=== PATIENT | female | born 1940 | race Caucasian/White ===

== ENCOUNTER 2023-06-02 05:48 | Observation (INO) ==
[~2023-06-02 05:48] MED LIST: BUPIVACAINE **LIPOSOME/PF 13.3 MG/ML (266MG/ 20ML) VIAL (RESTRICTED) INFIL ONE; Buffered Lidocaine 1% SYRIN 1 ml INTRADERM ONE; Lactated Ringers 1000 ml BAG 1,000 ML IV SCH
[2023-06-02] MEDS ORDERED: ceFAZolin 2 GM in NS PREMIX 2 GM/100 ML BAG IVPB ONE (06:15)
[2023-06-02] MEDS ORDERED: Tranexamic Acid 1 GM/100ML BAG 2,000 MG/200 ML BAG IV ONE (06:15)
[2023-06-02 06:45] LABS: Rapid COVID-19 Molecular Undetected (Undetected)
[2023-06-02] MEDS ORDERED: Dexamethasone IV 4 MG/ML VIAL 1 ml VIAL ONE (07:10)
[2023-06-02] MEDS ORDERED: Lidocaine 2% PF 5 ML VIAL ONE (07:10)
[2023-06-02] MEDS ORDERED: Ondansetron 4 mg VIAL 2 MG/ML 2 ml VIAL ONE ×3 (07:10→12:20)
[2023-06-02] MEDS ORDERED: Norepinephrine IV 1 MG/ML 4 ML VIAL ONE (07:10)
[2023-06-02] MEDS ORDERED: Bupivacaine 0.25% SDV PF 10 ML VIAL INJ ONE (07:10)
[2023-06-02] MEDS ORDERED: Dexmedetomidine 200 mcg/2 ml 2 ml VIAL (200 mcg) ONE (07:10)
[2023-06-02] MEDS ORDERED: Bupivacaine 0.5% SDV PF 30ML VIAL ONE (07:10)
[2023-06-02] MEDS ORDERED: Phenylephrine 40 mcg/mL 10mL (400mcg) SYRINGE ONE (07:11)
[2023-06-02] MEDS ORDERED: Midazolam 2 mg/2 ml VIAL 1 mg/ml 2 ml VIAL (2 mg) ONE (07:11)
[2023-06-02] MEDS ORDERED: fentaNYL 100 mcg/2 ml 50 MCG/ML VIAL ONE (07:11)
[2023-06-02] MEDS ORDERED: Bupivacaine 0.25% SDV 30 ML ONE (07:13)
[2023-06-02] MEDS ORDERED: Propofol 10 MG/ML 20 ML BTL ONE (07:13)
[2023-06-02] MEDS ORDERED: Lidocaine 1% VIAL 10 MG/ML 30 ML VIAL ONE (07:39)
[2023-06-02] MEDS ORDERED: methylPREDNISolone ACETATE 40 mg/ml 1 ml VIAL **not IV ONE (07:39)
[2023-06-02] MEDS ORDERED: BUPIVACAINE **LIPOSOME/PF 13.3 MG/ML (266MG/ 20ML) VIAL (RESTRICTED) INFIL ONE (09:00)
[2023-06-02] MEDS ORDERED: Naloxone 0.4 mg VIAL 0.4 mg/ml 1 ml VIAL IV PRN (09:58)
[2023-06-02] MEDS ORDERED: Ondansetron 4 mg VIAL 2 MG/ML 2 ml VIAL IV PRN ×2 (09:58→10:57)
[2023-06-02] MEDS ORDERED: fentaNYL 100 mcg/2 ml 50 MCG/ML VIAL IV PRN (09:58)
[2023-06-02] MEDS ORDERED: Magnesium Hydroxide LIQ 30 ML UDC PO PRN (10:57)
[2023-06-02] MEDS ORDERED: Lactulose 30 ml UDC PO PRN (10:57)
[2023-06-02] MEDS ORDERED: Ondansetron ODT 4 mg TAB 4 MG TAB PO PRN (10:57)
[2023-06-02] MEDS ORDERED: Morphine 2 MG/ML SYRINGE IV PRN (10:57)
[2023-06-02] MEDS ORDERED: hydrALAZINE 20 mg/ml 1 ML Vial IV ONE (12:03)
[2023-06-02] MEDS ORDERED: hydrALAZINE 20 mg/ml 1 ML Vial IV IV SLOW PU PRN (12:03)
[2023-06-02] MEDS ORDERED: Acetaminophen IV 1 GM/100ML 1,000 MG/100 ML BAG IV ONE ×2 (12:04)
[2023-06-02] MEDS ORDERED: HYDROmorphone 1 MG/1 ML SYRINGE ONE (12:19)
[2023-06-02] MEDS: HYDROmorphone 1 MG/1 ML SYRINGE IV PRN ×2 (12:21→12:30)
[2023-06-02] MEDS: Lactated Ringers 1000 ml BAG 1,000 ML IV SCH ×2 (12:48→23:08)
[2023-06-02] MEDS ORDERED: Prochlorperazine 5 mg/ml 2 ml VIAL (10 mg) IV PRN (15:52)
[2023-06-02] MEDS ORDERED: Scopolamine 1 mg/72hr PATCH TRANSDERM SCH (16:00)
[2023-06-02] MEDS: ceFAZolin 1 GM ADVAN 1 GM in NS 0.9% 50 ML 50 ML IVPB SCH ×2 (16:07→23:52)
[2023-06-02] MEDS: Magnesium Hydroxide LIQ 30 ML UDC PO SCH (22:32)
[2023-06-03 07:05] LABS: Hematocrit 31.1 % (35-45); Hemoglobin 10.8 g/dL (11.5-14.3); Mean Platelet Volume 8.3 fL (7.5-11.2); Platelet Count 271 10^3/uL (150-450)
[2023-06-03 07:16] LABS: Calcium 9.1 mg/dL (8.6-10.3); Creatinine, Serum 0.57 mg/dL (0.51-0.95); eGFR CKD-EPI 91.2 (>60)
[2023-06-03] MEDS: ceFAZolin 1 GM ADVAN 1 GM in NS 0.9% 50 ML 50 ML IVPB SCH (07:55)
[2023-06-03] MEDS: Vitamin THERAPEUTIC TAB PO SCH (08:18)
[2023-06-03] MEDS: Magnesium Hydroxide LIQ 30 ML UDC PO SCH ×2 (08:19→21:24)
[2023-06-04 06:23] LABS: Hematocrit 32.4 % (35-45); Mean Platelet Volume 8.4 fL (7.5-11.2); Platelet Count 297 10^3/uL (150-450)
[2023-06-04] MEDS: Vitamin THERAPEUTIC TAB PO SCH (08:35)
[2023-06-04] MEDS: Magnesium Hydroxide LIQ 30 ML UDC PO SCH (08:35)
[2023-06-04 14:54] VITALS: BP 141/77
== END 2023-06-04 16:00 | disposition home or self-care (01) ==
LOC: SSU 05:48 → OR 05:48
PROVIDERS: ADMIT Orthopaedic Surgery Sports Medicine; ATTEND Orthopaedic Surgery Sports Medicine

== ENCOUNTER 2024-06-14 06:43 | Observation (INO) ==
[~2024-06-14 06:43] MED LIST changes: -BUPIVACAINE **LIPOSOME/PF 13.3 MG/ML (266MG/ 20ML) VIAL (RESTRICTED) INFIL ONE; -Buffered Lidocaine 1% SYRIN 1 ml INTRADERM ONE; +Bupivacaine 0.25% SDV 30 ML ONE; -Lactated Ringers 1000 ml BAG 1,000 ML IV SCH; +Metoclopramide 5 MG/ML VIAL (10 mg) IV PRN; +NS 0.45% 1000 ml BAG 1,000 ML IV SCH; +Naloxone 0.4 mg VIAL 0.4 mg/ml 1 ml VIAL IV PRN; +Ondansetron 4 mg VIAL 2 MG/ML 2 ml VIAL IV PRN
[2024-06-14] MEDS ORDERED: Lidocaine 2% PF 5 ML VIAL ONE (06:46)
[2024-06-14] MEDS ORDERED: Propofol 10 MG/ML 20 ML BTL ONE ×3 (06:46→12:49)
[2024-06-14] MEDS ORDERED: fentaNYL 100 mcg/2 ml 50 MCG/ML VIAL ONE ×5 (06:46→15:24)
[2024-06-14] MEDS ORDERED: Dexamethasone IV 4 MG/ML VIAL 1 ml VIAL ONE (06:46)
[2024-06-14] MEDS ORDERED: Ondansetron 4 mg VIAL 2 MG/ML 2 ml VIAL ONE (06:46)
[2024-06-14] MEDS ORDERED: Rocuronium 50 mg VIAL 10 mg/ml 5 ml VIAL (50 mg) ONE (06:46)
[2024-06-14] MEDS ORDERED: Midazolam 2 mg/2 ml VIAL 1 mg/ml 2 ml VIAL (2 mg) ONE (06:46)
[2024-06-14] MEDS ORDERED: ceFAZolin 2 GM PREMIX 2 GM/50 ML BAG ONE (07:28)
[2024-06-14 07:40] LABS: Rapid COVID-19 Molecular Undetected (Undetected)
[2024-06-14] MEDS ORDERED: Bupivacaine 0.25% SDV 30 ML ONE (07:52)
[2024-06-14] MEDS: Acetaminophen IV 1 GM/100ML 1,000 MG/100 ML BAG IV ONE (07:57)
[2024-06-14] MEDS: Scopolamine 1 mg/72hr PATCH TRANSDERM ONE (07:58)
[2024-06-14] MEDS: Buffered Lidocaine 1% SYRIN 1 ml INTRADERM ONE (07:58)
[2024-06-14] MEDS: Lactated Ringers 1000 ml BAG 1,000 ML IV SCH ×2 (07:58→18:04)
[2024-06-14] MEDS ORDERED: Calcium Carb (TUMS) 500 mg CHEW TAB PO PRN (13:44)
[2024-06-14] MEDS ORDERED: Lactulose 30 ml UDC PO PRN (13:44)
[2024-06-14] MEDS ORDERED: Morphine 2 MG/ML SYRINGE IV PRN (13:44)
[2024-06-14] MEDS ORDERED: Ondansetron 4 mg VIAL 2 MG/ML 2 ml VIAL IV PRN (13:44)
[2024-06-14] MEDS ORDERED: Magnesium Hydroxide LIQ 30 ML UDC PO PRN (13:44)
[2024-06-14] MEDS ORDERED: Ondansetron ODT 4 mg TAB 4 MG TAB PO PRN (13:44)
[2024-06-14] MEDS: fentaNYL 100 mcg/2 ml 50 MCG/ML VIAL IV PRN (14:29)
[2024-06-14] MEDS ORDERED: Labetalol IV 5 MG/ML 20 ml VIAL ONE ×2 (14:55→15:41)
[2024-06-14] MEDS: Labetalol IV 5 MG/ML 20 ml VIAL IV PUSH ONE ×3 (14:58→17:59)
[2024-06-14] MEDS ORDERED: Metoprolol Tartrate 5 mg VIAL 5 ml VIAL (1 mg/ml) ONE (15:24)
[2024-06-14] MEDS: Metoprolol Tartrate 5 mg VIAL 5 ml VIAL (1 mg/ml) IV ONE (15:28)
[2024-06-14] MEDS: BUPIVACAINE **LIPOSOME/PF 13.3 MG/ML (266MG/ 20ML) VIAL (RESTRICTED) INFIL ONE (17:59)
[2024-06-14] MEDS: ceFAZolin 2 GM PREMIX 2 GM/50 ML BAG IV SCH (22:03)
[2024-06-14] MEDS: Magnesium Hydroxide LIQ 30 ML UDC PO SCH (22:14)
[2024-06-15 07:07] LABS: Hemoglobin 11.6 g/dL (11.5-14.3); Mean Platelet Volume 7.9 fL (7.5-11.2); Platelet Count 275 10^3/uL (150-450)
[2024-06-15 07:26] LABS: Calcium 8.7 mg/dL (8.6-10.3); Creatinine, Serum 0.61 mg/dL (0.51-0.95); Potassium 4.3 mmol/L (3.5-5.0); eGFR CKD-EPI 89.2 (>60)
[2024-06-15] MEDS: Vitamin THERAPEUTIC TAB PO SCH (08:17)
[2024-06-15 13:37] VITALS: BP 134/76
== END 2024-06-15 19:05 | disposition home or self-care (01) ==
LOC: OR 06:43 → SSU 06:43
PROVIDERS: ADMIT Orthopaedic Surgery Sports Medicine; ATTEND Orthopaedic Surgery Sports Medicine